=== PATIENT | female | born 1935 ===

== ENCOUNTER 2018-06-07 08:00 | Inpatient (IN) | payer OTHER ==
[~2018-06-07] VITALS: Ht 152.4 cm; Wt 56.7 kg
[2018-06-07] MEDS ORDERED: FORTAMET500 MG (12:11)
[2018-06-07] MEDS ORDERED: ENALAPRIL MALEA10 MG (12:11)
[2018-06-07] MEDS ORDERED: PANTOPRAZOLE SO40 MG (12:11)
[2018-06-07] MEDS ORDERED: GALANTAMINE4 MG/1 ML (12:11)
[2018-06-07] MEDS ORDERED: GABAPENTIN400 MG (12:11)
== END 2018-06-22 14:45 | disposition home or self-care (01) | DRG 330 ==
LOC: SURG 06-08 11:42 → SEC-K 06-08 11:42 → SURG 06-08 21:37 → SURH 06-09 08:00 → SURG 06-22 14:45
PROVIDERS: Surgery
PROC: 4A033R1 Measurement of Arterial Saturation, Peripheral, Percutaneous Approach (ICD-10-PCS; 2018-06-08)
PROC: 3E0F7GC Introduction of Other Therapeutic Substance into Respiratory Tract, Via Natural or Artificial Opening (ICD-10-PCS; 2018-06-08)
PROC: BW40ZZZ Ultrasonography of Abdomen (ICD-10-PCS; 2018-06-08)
PROC: 30233N1 Transfusion of Nonautologous Red Blood Cells into Peripheral Vein, Percutaneous Approach (ICD-10-PCS; 2018-06-09)
PROC: 02HV33Z Insertion of Infusion Device into Superior Vena Cava, Percutaneous Approach (ICD-10-PCS; 2018-06-09)
PROC: 07TC4ZZ Resection of Pelvis Lymphatic, Percutaneous Endoscopic Approach (ICD-10-PCS; 2018-06-13)
PROC: 0DTF4ZZ Resection of Right Large Intestine, Percutaneous Endoscopic Approach (ICD-10-PCS; principal; 2018-06-13 15:00)
DX: C18.0 Malignant neoplasm of cecum (principal); J98.11 Atelectasis; K56.0 Paralytic ileus; D63.8 Anemia in other chronic diseases classified elsewhere; R09.02 Hypoxemia; G30.0 Alzheimer's disease with early onset; F02.80 Dementia in other diseases classified elsewhere, unspecified severity, without behavioral disturbance, psychotic disturbance, mood disturbance, and anxiety; K74.69 Other cirrhosis of liver; E87.6 Hypokalemia; E78.00 Pure hypercholesterolemia, unspecified; E78.49 Other hyperlipidemia; K59.09 Other constipation; K80.80 Other cholelithiasis without obstruction; J45.20 Mild intermittent asthma, uncomplicated; J44.9 Chronic obstructive pulmonary disease, unspecified; I11.9 Hypertensive heart disease without heart failure; E11.40 Type 2 diabetes mellitus with diabetic neuropathy, unspecified; G47.33 Obstructive sleep apnea (adult) (pediatric); E03.8 Other specified hypothyroidism; Z86.010 Personal history of colon polyps; Z85.51 Personal history of malignant neoplasm of bladder